=== PATIENT | female | born 1975 | race Caucasian/White ===

== ENCOUNTER 2017-01-13 23:00 | Emergency (ER) | payer MEDICAID ==
[~2017-01-13] VITALS: Ht 167.6 cm; Wt 63.5 kg
[2017-01-13] MEDS ORDERED: OXYCODONE/APAP 5-325 MG TABLET PO ONE (23:45)
--- NOTE | 2017-01-13 23:48 | NUR ---
pt c/o left sided rib pain s/p being tackled playing football. Resp even and unlabored. No resp distress noted. Pt seen by MD. Pt medicated for pain, will monitor for effects of medication. Xray at bedside. waiver signed.
[2017-01-13] MEDS ORDERED: OXYCODONE/APAP 5-325 MG TABLET ONE (23:52)
--- NOTE | 2017-01-14 00:31 | NUR ---
pt refused ekg
--- NOTE | 2017-01-14 00:33 | NUR ---
Pt sts pain improving. Pt stable for discharge per MD. Pt given ACI. Pt verbalized understanding of dc instructions. 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
[2017-01-14 00:34] VITALS: BP 147/64
== END 2017-01-14 00:35 | disposition home or self-care (01) ==
LOC: ER 23:11
DX: S20.212A Contusion of left front wall of thorax, initial encounter (principal); F11.10 Opioid abuse, uncomplicated; X58.XXXA Exposure to other specified factors, initial encounter; Y93.89 Activity, other specified; Y99.8 Other external cause status; Y92.89 Other specified places as the place of occurrence of the external cause
CPT/HCPCS: 71101; 99284; 99406; A4663; 93005

== ENCOUNTER 2017-10-16 19:15 | Emergency (ER) | payer MEDICAID ==
[~2017-10-16] VITALS: Ht 167.6 cm; Wt 45.4 kg
[2017-10-16] MEDS ORDERED: IBUPROFEN 600 MG TABLET ONE (19:47)
[2017-10-16] MEDS: IBUPROFEN 600 MG TABLET PO ONE (19:53)
--- NOTE | 2017-10-16 19:55 | NUR ---
Pt to room via w/c. Pt seen by MD. RT to bedside for trach care. Wound to arm cleaned and drsg changed. Pt medicated for discomfort. Pt stable for discharge per MD. Pt given ACI. Pt wheeled out of ER via w/c
[2017-10-16 19:56] VITALS: BP 111/70
== END 2017-10-16 19:57 | disposition home or self-care (01) ==
LOC: ER 19:18
DX: S00.83XA Contusion of other part of head, initial encounter (principal); Z46.82 Encounter for fitting and adjustment of non-vascular catheter; X58.XXXA Exposure to other specified factors, initial encounter; Y93.89 Activity, other specified; Y99.8 Other external cause status; Y92.89 Other specified places as the place of occurrence of the external cause

== ENCOUNTER 2024-03-25 21:54 | Emergency (ER) | payer MEDICAID, OTHER ==
[~2024-03-25] VITALS: Ht 167.6 cm; Wt 63.5 kg
[2024-03-25] MEDS: ONDANSETRON 4 MG/2 ML VIAL IV ONE (23:22)
[2024-03-25] MEDS: IV NORMAL SALINE 500 ML IV ONE (23:22)
[2024-03-25] MEDS: FAMOTIDINE. 20 MG/2 ML VIAL IV ONE (23:22)
[2024-03-25 23:33] LABS: CALCIUM 9.2 mg/dL (8.5-10.1); CARBON DIOXIDE 32 mmol/L (21-32); CHLORIDE 91 mmol/L (98-107); CREATININE 0.9 mg/dL (0.6-1.3); GLUCOSE 125 mg/dL (74-106); POTASSIUM 3.9 mmol/L (3.5-5.1); SODIUM SERUM 131 mmol/L (136-145); UREA NITROGEN, BLOOD 35 mg/dL (7-18)
[2024-03-25 23:39] LABS: BASOPHILS % (AUTO) 0.5 % (0.0-2.0); EOSINOPHILS # (AUTO) 0.2 K/uL (0.0-0.7); EOSINOPHILS % (AUTO) 3.1 % (0.0-7.0); HEMATOCRIT 37.8 % (31.2-41.9); HEMOGLOBIN 12.7 g/dL (10.9-14.3); LYMPHOCYTES # (AUTO) 1.3 K/uL (0.8-4.8); MEAN CORPUSCULAR HEMOGLOBIN 29.2 uug (24.7-32.8); MEAN CORPUSCULAR HGB CONC 34 g/dL (32.3-35.6); MEAN CORPUSCULAR VOLUME 86.6 fL (75.5-95.3); MONOCYTES # (AUTO) 0.9 K/uL (0.1-1.30); NEUTROPHILS % (AUTO) 67.4 % (38.5-71.5); PLATELET COUNT (AUTO) 525 K/uL (179-408); RED BLOOD CELL COUNT(AUTO) 4.37 MIL/uL (3.63-4.92); WHITE BLOOD COUNT (AUTO) 7.4 K/uL (3.8-11.8)
[2024-03-25 23:42] LABS: ALANINE AMINOTRANSFERASE 19 U/L (14-59); ALBUMIN 2.7 g/dL (3.4-5.0); ALKALINE PHOSPHATASE 114 U/L (50-136); ASPARTATE AMINOTRANSFERASE 13 U/L (15-37); BILIRUBIN,DIRECT 0.1 mg/dL (0.0-0.2); BILIRUBIN,TOTAL 0.4 mg/dL (0.2-1.0); LIPASE 18 U/L (16-77); TOTAL PROTEIN, SERUM 8.1 g/dL (6.4-8.2)
[2024-03-25] MEDS: HYDROMORPHONE 1 MG/1 ML DISP.SYRIN IV ONE (23:42)
[2024-03-25] MEDS ORDERED: HYDROMORPHONE 1 MG/1 ML DISP.SYRIN ONE (23:43)
[2024-03-26 00:52] LABS: *BILIRUBIN,URIN NEGATIVE (NEGATIVE); *BLOOD, URINE 1+ (NEGATIVE); *CLARITY,URINE CLEAR (CLEAR); *COLOR,URINE YELLOW (YELLOW); *KETONES,URINE NEGATIVE (NEGATIVE); *PROTEIN,URINE 2+ (NEGATIVE); *UROBILINOGEN,URINE 0.2 E.U./dl (NORMAL); LEUKOCYTE ESTERASE ,URINE NEGATIVE (NEGATIVE); NITRITE, URINE NEGATIVE (NEGATIVE); UGLUCOSE NEGATIVE (NEGATIVE)
[2024-03-26 01:26] LABS: WBC,URINE 0-3 /HPF (0-3)
[2024-03-26 01:27] LABS: BACTERIA,URINE FEW /HPF (NONE SEEN); SQUAMOUS EPITHELIAL CELL,UR FEW /HPF (NONE SEEN)
[2024-03-26] MEDS ORDERED: MAGN400O6 PO (01:44)
[2024-03-26] MEDS ORDERED: SENN1TAB33 PO (01:44)
[2024-03-26] MEDS: IV NORMAL SALINE 500 ML IV ONE (01:44)
[2024-03-26 03:15] VITALS: BP 118/72; TEMP 98; O2SAT 98
== END 2024-03-26 03:15 | disposition home or self-care (01) ==
LOC: ER 21:55
DX: K59.00 Constipation, unspecified (principal); E86.0 Dehydration; E87.1 Hypo-osmolality and hyponatremia; E46 Unspecified protein-calorie malnutrition; R10.32 Left lower quadrant pain; F17.200 Nicotine dependence, unspecified, uncomplicated; Z98.890 Other specified postprocedural states; Z79.899 Other long term (current) drug therapy; Z68.22 Body mass index [BMI] 22.0-22.9, adult
CPT/HCPCS: 99285; 74176; 96374; 96375; 71045; 96361 ×2; 80076; 80048; 83690; 85025; 85730; 84484; 36415; 93005; 81001; J3490; J2405; J1170; J7040 ×2; A4606; A4663